=== PATIENT | female | born 1995 | race Caucasian/White ===

== ENCOUNTER 2020-10-03 10:46 | Outpatient (REF) | payer BC, SELFPAY ==
[2020-10-03 13:53] LABS: MANUAL DIFF FLAG NO
[2020-10-03 14:07] LABS: Basophils Absolute Auto 0.1 X10*3/uL (0.0-0.2); Eosinophils Absolute Auto 0.6 X10*3/uL (0.0-0.4); Eosinophils Percent Auto 6.9 % (0-4); Hematocrit 42.5 % (37-47); Hemoglobin 14.1 g/dl (12.0-16.0); Imm Gran Abs Auto 0.02 X10*3/uL (0.00-0.03); Imm Gran Pct Auto 0.2 % (0.0-0.4); Lymphocytes Absolute Auto 2.7 X10*3/uL (1.2-4.9); Lymphocytes Percent Auto 32.4 % (20-40); Mean Corpuscular HGB Conc 33.2 g/dl (31.0-35.0); Mean Corpuscular Hemoglobin 29.7 pg (27.0-33.0); Mean Corpuscular Volume 89.5 fL (80-98); Mean Platelet Volume 10.9 fL (9.4-12.3); Monocytes Absolute Auto 0.6 X10*3/uL (0.1-1.2); Monocytes Percent Auto 6.5 % (2-11); Neutrophils Absolute Auto 4.5 X10*3/uL (2.0-8.3); Platelet Count 324 X10*3/uL (160-400); Red Blood Count 4.75 X10*6/uL (4.20-5.50); White Blood Count 8.4 X10*3/uL (4.8-10.8)
[2020-10-03 14:08] LABS: Glucose Urine UA NEG (NEG); Leukocyte Esterase Urine NEG (NEG); Nitrite Urine NEG (NEG); Specific Gravity - Urine >= 1.030 (1.005-1.025); Urine Blood NEG (NEG); Urine Ketones 40 MG/DL (NEG); Urine Protein 1+ MG/DL (NEG-TRACE)
[2020-10-03 14:13] LABS: Appearance Urine TURBID; Color Urine YELLOW
[2020-10-03 14:27] LABS: Alanine Aminotransferase 6 U/L (0-31); Albumin Level 4.2 g/dL (3.5-5.0); Alkaline Phosphatase 54 U/L (39-117); Anion Gap 14 (12-20); Aspartate Amino Transferase 13 U/L (5-31); Bilirubin Direct 0.2 mg/dL (0.0-0.5); Bilirubin Total 0.5 mg/dL (0.0-1.0); Blood Urea Nitrogen 9 mg/dL (9-16); Calcium 9.1 mg/dL (8.4-10.2); Carbon Dioxide 24 mmol/L (22-29); Chloride 104 mmol/L (96-108); Cholesterol 135 mg/dL; Estimated Glomerular Filt Rate > 60; Glucose Fasting 82 mg/dL (60-99); HDL Cholesterol 51 mg/dL; LDL Cholesterol Calculated 73 mg/dl; Potassium 4.2 mmol/L (3.3-5.1); Sodium 138 mmol/L (135-145); Total Protein 7.1 g/dL (6.5-8.0); Triglycerides 56 mg/dL
[2020-10-03 14:35] LABS: Amorphous Sediment Urine 4+ /LPF; RBC Urine 0 /HPF (0); WBC Urine 0 /HPF (0-4)
[2020-10-03 14:40] LABS: TSH reflex Free T4 0.81 uIU/mL (0.32-4.0)
[2020-10-03 14:51] LABS: Vitamin B12 < 146 pg/mL (200-900)
[2020-10-07 13:42] LABS: Vitamin D 25-OH, D2 <4 ng/mL; Vitamin D 25-OH, D3 5 ng/mL; Vitamin D 25-OH, Total 5 ng/mL (30-100)
== END 2020-10-03 10:47 | disposition home or self-care (01) ==
LOC: HO.HMGCLDS 10:46
PROVIDERS: PCP Internal Medicine; Visit Provider Internal Medicine
DX: Z00.01 Encounter for general adult medical examination with abnormal findings (principal); F41.1 Generalized anxiety disorder; R39.15 Urgency of urination; N32.9 Bladder disorder, unspecified; R20.2 Paresthesia of skin; R51.9 Headache, unspecified; R42 Dizziness and giddiness
CPT/HCPCS: 36415; 80048; 80061; 80076; 81001; 81003; 82306; 82607; 84443; 85025

== ENCOUNTER → 2020-11-22 15:07 | Outpatient (BNVA) | payer BC, SELFPAY | PROVIDERS: PCP Internal Medicine; Visit Provider Urology ==

== ENCOUNTER 2021-02-08 07:47 | Outpatient (REF) | payer BC, SELFPAY ==
[2021-02-08 11:34] LABS: Glucose Urine UA NEG (NEG); Leukocyte Esterase Urine NEG (NEG); Nitrite Urine NEG (NEG); PH 7.5 (5.0-8.0); Specific Gravity - Urine 1.015 (1.005-1.025); Urine Blood NEG (NEG); Urine Ketones NEG (NEG); Urine Protein NEG (NEG-TRACE)
[2021-02-08 11:38] LABS: Appearance Urine CLEAR; Color Urine YELLOW
[2021-02-08 12:25] LABS: Vitamin B12 751 pg/mL (200-900)
[2021-02-12 20:37] LABS: Vitamin D 25-OH, D2 69 ng/mL; Vitamin D 25-OH, D3 5 ng/mL; Vitamin D 25-OH, Total 74 ng/mL (30-100)
[2021-02-15 19:33] LABS: Intrinsic Factor Antibodies Negative (Negative)
== END 2021-02-08 07:48 | disposition home or self-care (01) ==
LOC: HO.HMGCLDS 07:47
PROVIDERS: PCP Internal Medicine; Visit Provider Internal Medicine
DX: Z00.01 Encounter for general adult medical examination with abnormal findings (principal); E53.8 Deficiency of other specified B group vitamins; R82.90 Unspecified abnormal findings in urine; E55.9 Vitamin D deficiency, unspecified; R39.15 Urgency of urination; R20.2 Paresthesia of skin; R51.9 Headache, unspecified; R42 Dizziness and giddiness; F41.1 Generalized anxiety disorder
CPT/HCPCS: 36415; 81003; 82306; 82607; 85018; 86340

== ENCOUNTER → 2021-06-05 09:24 | Outpatient (BNVA) | payer BC, SELFPAY | PROVIDERS: PCP Internal Medicine ==

== ENCOUNTER 2021-07-31 13:28 | Outpatient (REF) | payer BC, SELFPAY | END 2021-07-31 13:29 | disposition home or self-care (01) | LOC: HO.HMGCLDS 13:28 | PROVIDERS: PCP Internal Medicine; Visit Provider Internal Medicine | DX: Z20.822 Contact with and (suspected) exposure to COVID-19 (principal) | CPT/HCPCS: C9803; U0003; U0005 ==

== ENCOUNTER 2021-08-03 13:18 | Outpatient (REF) | payer BC, SELFPAY ==
[2021-08-05 08:04] LABS: Vitamin B12 1428 pg/mL (200-900)
[2021-08-08 14:06] LABS: Vitamin D 25-OH, D2 19 ng/mL; Vitamin D 25-OH, D3 18 ng/mL; Vitamin D 25-OH, Total 37 ng/mL (30-100)
== END 2021-08-03 13:19 | disposition home or self-care (01) ==
LOC: HO.HMGCLDS 13:18
PROVIDERS: PCP Internal Medicine; Visit Provider Internal Medicine
DX: E53.8 Deficiency of other specified B group vitamins (principal); E55.9 Vitamin D deficiency, unspecified
CPT/HCPCS: 36415; 82306; 82607

== ENCOUNTER 2021-08-06 13:07 | Outpatient (REF) | payer BC, SELFPAY | END 2021-08-06 13:08 | disposition home or self-care (01) | LOC: HO.HMGCLDS 13:07 | PROVIDERS: PCP Internal Medicine; Visit Provider Internal Medicine | DX: Z20.822 Contact with and (suspected) exposure to COVID-19 (principal) | CPT/HCPCS: C9803; U0003; U0005 ==

== ENCOUNTER → 2021-08-12 09:59 | Outpatient (BNVA) | payer BC, SELFPAY | PROVIDERS: PCP Internal Medicine ==

== ENCOUNTER 2021-09-12 09:00 | Outpatient (RCR) | payer BC, SELFPAY ==
--- NOTE | 2021-07-12 09:04 | MHC.PT.EP ---
[facility] [place] [facility] [place] [facility] [place] [facility] [address] Windy Carlson [address] [phone] F: [phone] F: [phone] F: [phone] F: [phone] Physical Therapy Plan of Care Date of Evaluation: Date of Surgery: Diagnosis: Assessment: The patient arrived reporting significant urge issues regarding her bladder. No pelvic pain reported other than occasional pain around her left ovary especially around her cycle) She reports she feels like she has to go to the bathroom about 80% of the time. Her symptoms began shortly after a 2 year span of frequent UTI's 17-19 years old. She reports often times when she tries to void she only has a few drops. She reports constant just in case peeing. in a 2 hour span this a.m she reports using the bathroom 5 times. The patient had a small Grade 1 uterine prolapse. She had a grade 2 urethrocele. She reports increased trouble with constipation and frequent straining to pee and poop. She had poor tone in anterior pelvic floor. Overall she had pelvic floor weakness. PERF scale is 2/2/8//4. The patient is an excellent candidate for skilled pelvic floor PT. Frequency and Duration: The patient will be seen 1x/week x 6 weeks Short Term Goals: 2. Pt to be able to demonstrate diaphragmatic breathing to improve pressure exchange and intra abdominal load management. 3. Pt to be educated on bladder irritants in order to decrease UI triggers 4. Pt to complete a voiding log in order to accurately assess her bladder habits 5. Pt to be educated on behavior training to help decrease urge incontinence. [employer] Goals: 1. Pt to report only have 8-10 urges to urinate daily to show an improvement with Urge incontinence 2. Pt to be identify and reduce diet and lifestyle irritants that aggravate the bladder. 3. Pt to be able to perform PFM for a 10 second hold with good muscle isolation to show improved NMR of pelvic floor muscles. Treatment Plan: Modalities to reduce pain, spasms and effusion. Manual therapy to restore motion and function. Therapeutic exercise to improve strength and flexibility. Neuromuscular re-education for posture and balance. Therapeutic activities to return to functional activities of daily living. Electronically signed by: Please sign and return to therapist. Thank you for your referral.
== END 2021-11-11 07:14 | disposition home or self-care (01) ==
LOC: HO.PT 09:00
PROVIDERS: PCP Internal Medicine
DX: R10.2 Pelvic and perineal pain (principal)
CPT/HCPCS: 97110; 97140; 97162; 97530